=== PATIENT | male | born 1995 | race Caucasian/White ===

== ENCOUNTER 2022-07-23 09:58 | Outpatient (OUT) | payer OTHER, SELFPAY ==
--- NOTE | 2022-07-23 10:11 | MR_ITS ---
[place] [id number] Patient Name: JACKLYN PUGH MRN: [id number] date: 1995 Sex: M Assigned Patient Location: [facility] Current Patient Location: [facility] Accession/Order Number: [id number] Exam Date: 07/23/2022 11:00 Report Date: 07/23/2022 12:23 At the request of: LUCITA EDGE Procedure: MR knee RT wo con EXAMINATION: MR knee RT wo con HISTORY: Right knee sprain S83.91XA ; acute medial knee pain following injury; history of ACL repair COMPARISON: No relevant comparison available. TECHNIQUE: A complete multi-planar MRI was performed. FINDINGS: MEDIAL COMPARTMENT MEDIAL MENISCUS: Prominent T2 signal within the posterior horn near its insertion suspicious for tear/maceration. CARTILAGE: Thinning with suspected focal defect at weightbearing surface of femoral condyle resulting in mild underlying edema. BONES: Mild subchondral edema adjacent weightbearing surface of femoral condyle. Prominent T2 signal within posterior aspect of tibial plateau suspicious for bone bruising. MCL AND MEDIAL CAPSULE: Grade I sprain of the medial collateral ligament. LATERAL COMPARTMENT LATERAL MENISCUS: No visible tear or significant degeneration. CARTILAGE: [Thinning along the weightbearing surfaces. BONES: Mild edema within posterior-lateral aspect of the lateral femoral condyle suspicious for bone bruising. LCL/POSTEROLAT COMPLEX: Normal lateral collateral ligament, fascicles, lateral capsule and ligaments. ANTERIOR COMPARTMENT PATELLA: No marrow pathology, fracture, or significant arthropathy. CARTILAGE: No visible defect. TENDONS: Normal. EFFUSION: None. No synovitis or loose bodies. ACL: Prior ACL repair; no appreciable disruption. PCL: Normal appearing ligament. MENISCOFEMORAL: Normal meniscofemoral ligaments. OTHER: Negative. IMPRESSION: 1. Tear versus maceration of posterior medial meniscus near its insertion. 2. 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 3. Bone bruising of the posterior medial tibial plateau and posterior lateral aspect of the lateral femoral condyle. 4. Prior ACL repair; no appreciable disruption. Electronically authenticated by: MAXWELL CATALAN Date: 07/23/2022 12:23
--- NOTE | 2022-07-23 10:18 | XR_ITS ---
[facility] [place] [id number] Patient Name: JACKLYN PUGH MRN: [id number] date: 1995 Sex: M Assigned Patient Location: [facility] Current Patient Location: [facility] Accession/Order Number: [id number] Exam Date: 07/23/2022 10:30 Report Date: 07/23/2022 10:46 At the request of: LUCITA EDGE Procedure: XR foreign body eye EXAMINATION: XR foreign body eye, [id number] HISTORY: Foreign body eye COMPARISON: None. FINDINGS/IMPRESSION: No radiopaque foreign body in the orbits. Small left dental amalgam. Electronically authenticated by: LYNN ASENCIO Date: 07/23/2022 10:46
--- NOTE | 2022-07-23 10:55 | XR_ITS ---
The [address] [address] Patient Name: JACKLYN PUGH MRN: [id number] date: 1995 Sex: M Assigned Patient Location: [facility] Current Patient Location: [facility] Accession/Order Number: [id number] Exam Date: 07/23/2022 10:55 Report Date: 07/23/2022 11:07 At the request of: LUCITA EDGE Procedure: XR hip RT min 2V PROCEDURE: XR hip RT min 2V HISTORY: PRE MRI COMPARISON: None. FINDINGS: BONES:No fracture, acute abnormality, or significant arthropathy. SOFT TISSUES:No visible soft tissue swelling. EFFUSION:None visible. OTHER: Negative. IMPRESSION: No metallic foreign body within the soft tissues surrounding the right hip. Electronically authenticated by: MAXWELL CATALAN Date: 07/23/2022 11:07
== END 2022-07-23 09:59 ==
LOC: RAD 10:02
PROVIDERS: Visit Provider Nurse Practitioner Family
DX: S82.91XA Unspecified fracture of right lower leg, initial encounter for closed fracture (principal)
CPT/HCPCS: 70030; 73502; 73721

== ENCOUNTER 2022-07-29 13:35 | Outpatient (RCR) | payer OTHER, SELFPAY | END 2022-08-12 13:16 | disposition home or self-care (01) | LOC: PT 13:35 | PROVIDERS: Visit Provider Nurse Practitioner Family | DX: S83.91XD Sprain of unspecified site of right knee, subsequent encounter (principal) | CPT/HCPCS: 97010; 97110; 97161; G0283 ==

== ENCOUNTER 2023-02-16 13:06 | Outpatient (RCR) | payer SELFPAY | END 2023-04-15 12:36 | disposition home or self-care (01) | LOC: PT 13:06 | PROVIDERS: Visit Provider Orthopaedic Surgery | DX: M25.461 Effusion, right knee (principal) | CPT/HCPCS: 97110; 97112; 97161 ==